=== PATIENT | female | born 1945 | race Caucasian/White ===

== ENCOUNTER 2023-04-11 18:16 | Inpatient (IN) | payer MEDICARE, MEDICAID ==
[2023-04-11] MEDS ORDERED: Dexamethasone 10 MG/ML VIAL ONE (18:28)
[2023-04-11] MEDS ORDERED: Furosemide 40 MG/4 ML VIAL ONE (18:28)
[2023-04-11] MEDS ORDERED: Ipratropium/Albuterol 3 ML NEB ONE (18:34)
[2023-04-11 18:45] LABS: #Monocytes 0.5 thou/uL (0.11-0.59); #Neutrophils 5.3 thou/uL (1.40-6.50); %Basophils 0.3 % (0.0-1.0); %Eosinophils 0.5 % (0.0-10.0); %Lymphocytes 8.3 % (21.0-51.0); %Monocytes 8.1 % (0.0-10.0); %Neutrophils 81.4 % (42.0-75.0); Hematocrit 35.5 % (36.0-47.0); Hemoglobin 9.4 g/dL (12.0-16.0); Mean Corpuscular HGB CONC 26.5 g/dL (32.0-36.0); Mean Corpuscular Hemoglobin 25.3 pg (27.0-31.0); Mean Corpuscular Volume 95.4 fl (78.0-98.0); Mean Platelet Volume 10.2 fL (7.4-10.4); Platelet Count 233 10x3/uL (130-400); RBC Distribution Width 16.5 % (11.5-14.5); Red Blood Cell (RBC) Count 3.72 mill/uL (4.20-5.40); White Blood Cell (WBC) Count 6.5 10x3/uL (4.8-10.8)
[2023-04-11 18:55] LABS: Actual Bicarbonate (HCO3a) 49.3 mEq/L (22-28); Analyzer IN Cardio ER; Base Excess (BEa) 17.1 mEq/L (-2.0 to +3.0); Calcium, Ionized (arterial) 1.23 mmol/L (1.12-1.30); Carboxyhemoglobin (COHb) 0.8 gm% (0.0-3.0); Hematocrit-ABG 28 % (36.0-47.0); Hemoglobin (Hb) 9.5 g/dL (12.0-16.0); Potassium - ABG Lab 4.54 mmol/L (3.70-5.30)
[2023-04-11 19:02] LABS: CO2 Tension 135.7 mmHg (35.0-45.0); Puncture Site RR; pH, Arterial 7.178 (7.35-7.45)
[2023-04-11 19:03] LABS: ALV-art Gradient 242.375 mmHg (0-20)
[2023-04-11 19:11] LABS: ALT (SGPT) Less than 7 U/L (8-55); AST (SGOT) 11 U/L (5-34); Albumin 3.8 g/dL (3.4-4.8); Alkaline Phosphatase 62 U/L (40-110); BUN (Urea Nitrogen) 18 mg/dL (9.8-20.1); Bilirubin, Total 0.4 mg/dL (0.2-1.2); Calc. Creatinine Clearance 0 mL/min (70-130); Calcium 9.1 mg/dL (7.8-10.44); Estimated GFR 66; Globulin 2.9 g/dL (2.4-3.5); Glucose 127 mg/dL (83-110); Protein, Total 6.7 g/dL (5.8-8.1)
[2023-04-11 19:15] LABS: Troponin I 0.012 ng/mL (< 0.028)
[2023-04-11 19:17] LABS: Anisocytosis SLIGHT = 6-15 cells HPF (0-5); CellaVision Operator ID LAB.KB; Hypochromia SLIGHT = 6-15 cells HPF (0-5); Platelet Adequacy Comment Platelets Normal; Polychromasia SLIGHT = 2-3 cells HPF (0-2); Stomatocytes SLIGHT = 2-5 cells HPF (0-1)
[2023-04-11 19:21] LABS: Anion Gap 17 mmol/L (10-20); Carbon Dioxide 38 mmol/L (23-31); Chloride 93 mmol/L (98-107); Potassium 4.7 mmol/L (3.5-5.1); Sodium 143 mmol/L (136-145)
[2023-04-11 20:01] LABS: Actual Bicarbonate (HCO3a) 49.5 mEq/L (22-28); Analyzer IN Cardio ER; Base Excess (BEa) 18.4 mEq/L (-2.0 to +3.0); Calcium, Ionized (arterial) 1.21 mmol/L (1.12-1.30); Carboxyhemoglobin (COHb) 0.8 gm% (0.0-3.0); Hematocrit-ABG 27 % (36.0-47.0); Hemoglobin (Hb) 9.2 g/dL (12.0-16.0); O2 Tension (PaO2), arterial 95.9 mmHg (> 70.0); Potassium - ABG Lab 4.41 mmol/L (3.70-5.30); pH, Arterial 7.232 (7.35-7.45)
[2023-04-11 20:07] LABS: Puncture Site RR
[2023-04-11] MEDS ORDERED: Lidocaine 1% PF 5 ML VIAL ONE (20:09)
[2023-04-11] MEDS ORDERED: Rocuronium Bromide 10 MG/ML (10ML VIAL) ONE (20:26)
[2023-04-11] MEDS ORDERED: Ketamine In 0.9 % NaCl 50 MG/5 ML SYRINGE ONE (20:26)
[2023-04-11] MEDS ORDERED: NOREPINEPHRINE 8 MG/250 ML-D5W 250 ML ONE (20:32)
[2023-04-11 21:09] LABS: Actual Bicarbonate (HCO3a) 42.4 mEq/L (22-28); Analyzer IN Cardio ER; Base Excess (BEa) 17.8 mEq/L (-2.0 to +3.0); CO2 Tension 51.6 mmHg (35.0-45.0); Calcium, Ionized (arterial) 1.13 mmol/L (1.12-1.30); Carboxyhemoglobin (COHb) 0.7 gm% (0.0-3.0); Hematocrit-ABG 27 % (36.0-47.0); Hemoglobin (Hb) 9.1 g/dL (12.0-16.0); O2 Tension (PaO2), arterial 318.2 mmHg (> 70.0); Potassium - ABG Lab 4.61 mmol/L (3.70-5.30); pH, Arterial 7.533 (7.35-7.45)
[2023-04-11 21:19] LABS: Bacteria/HPF 1+ HPF (None Seen); Bilirubin Negative (Negative); Blood, Urine Negative (Negative); CAUTI Indications for Culture Alt mental st,lethar; Clarity Clear (Clear); Glucose, Urine (Dipstick) Normal (Negative); Ketone, Urine Negative (Negative); Leukocyte Negative Leu/uL (Negative); Nitrite Negative (Negative); Protein, Urine (Dipstick) 30 mg/dL (Neg-Trace); RBC/HPF 0-3 HPF (0-3); Specific Gravity, Urine 1.009 (1.002-1.036); Squamous Epithelial 0-3 HPF (0-3); Urine Culture Reflex No No; Urobilinogen Normal mg/dL (Less than 2); WBC/HPF 0-3 HPF (0-3); pH, Urine 5.5 (5.0-9.0)
[2023-04-11 21:22] LABS: Puncture Site RR
[2023-04-11] MEDS ORDERED: Electrolyte Replacement Protocol 1 EACH IVPB SCH (21:45)
[2023-04-11] MEDS ORDERED: Acetaminophen 650 MG Suppository PR PRN (21:45)
[2023-04-11] MEDS ORDERED: Ventilator Sedation Protocol 1 EACH FS SCH (21:45)
[2023-04-11] MEDS ORDERED: Propofol BOLUS 1,000 MG/100 ML VIAL IV PRN (22:00)
[2023-04-11] MEDS ORDERED: DISCONTINUE PREVIOUS NARCOTIC PAIN MEDICATIONS AND BENZODIAZEPINES FS SCH (22:00)
[2023-04-11] MEDS ORDERED: Propofol 1,000 MG/100 ML VIAL IV PRN (22:00)
[2023-04-11] MEDS ORDERED: Morphine 2 MG/ML VIAL SLOW IVP PRN (22:00)
[2023-04-11] MEDS ORDERED: Fentanyl BOLUS 250 ML IVPB PRN (22:00)
[2023-04-11] MEDS ORDERED: Dextrose 5%-Lactated Ringers 1,000 ML IV SCH (22:30)
[2023-04-11] MEDS: Lorazepam 2 MG/ML VIAL SLOW IVP PRN (23:15)
[2023-04-11] MEDS: Ipratropium/Albuterol 3 ML NEB NEB SCH (23:48)
[2023-04-12] MEDS ORDERED: Albumin 25% 25 GM/100 ML BOT IVPB SCH ×2 (00:30→16:30)
[2023-04-12] MEDS: Lorazepam 2 MG/ML VIAL SLOW IVP PRN ×2 (02:40→04:40)
[2023-04-12 04:40] LABS: #Monocytes 0.1 thou/uL (0.11-0.59); #Neutrophils 3.8 thou/uL (1.40-6.50); %Basophils 0.2 % (0.0-1.0); %Lymphocytes 7.3 % (21.0-51.0); %Neutrophils 88.8 % (42.0-75.0); Hematocrit 26.6 % (36.0-47.0); Hemoglobin 7.3 g/dL (12.0-16.0); Mean Corpuscular HGB CONC 27.4 g/dL (32.0-36.0); Mean Corpuscular Hemoglobin 25.2 pg (27.0-31.0); Mean Platelet Volume 10.5 fL (7.4-10.4); Platelet Count 169 10x3/uL (130-400); RBC Distribution Width 15.9 % (11.5-14.5); White Blood Cell (WBC) Count 4.3 10x3/uL (4.8-10.8)
[2023-04-12 04:58] LABS: ALT (SGPT) Less than 7 U/L (8-55); AST (SGOT) 7 U/L (5-34); Albumin 3.2 g/dL (3.4-4.8); Alkaline Phosphatase 42 U/L (40-110); BUN (Urea Nitrogen) 21 mg/dL (9.8-20.1); Bilirubin, Total 0.5 mg/dL (0.2-1.2); Calc. Creatinine Clearance 65 mL/min (70-130); Calcium 8.9 mg/dL (7.8-10.44); Estimated GFR 64; Globulin 2.2 g/dL (2.4-3.5); Glucose 156 mg/dL (83-110); Protein, Total 5.4 g/dL (5.8-8.1)
[2023-04-12] MEDS: Furosemide 40 MG/4 ML VIAL SLOW IVP SCH ×2 (05:12→13:14)
[2023-04-12 05:16] LABS: Chloride 91 mmol/L (98-107); Potassium 4.2 mmol/L (3.5-5.1); Sodium 143 mmol/L (136-145)
[2023-04-12 05:19] LABS: Anion Gap 20 mmol/L (10-20); Carbon Dioxide 36 mmol/L (23-31)
[2023-04-12 05:21] LABS: Mean Corpuscular Volume 91.7 fl (78.0-98.0)
[2023-04-12] MEDS: ACETYLCYSTEINE INH SCH ×4 (06:00→23:15)
[2023-04-12] MEDS: Ipratropium/Albuterol 3 ML NEB NEB SCH ×4 (07:09→23:14)
[2023-04-12] MEDS ORDERED: Ipratropium/Albuterol 3 ML NEB NEB PRN (08:39)
[2023-04-12] MEDS ORDERED: [UNRECOGNIZED DRUG - REMARK] IVPB PRN (08:44)
[2023-04-12] MEDS ORDERED: Sodium Chloride 0.9% 1,000 ML IV SCH (08:45)
[2023-04-12 08:54] LABS: Actual Bicarbonate (HCO3a) 43.8 mEq/L (22-28); Base Excess (BEa) 20.7 mEq/L (-2.0 to +3.0); CO2 Tension 42.7 mmHg (35.0-45.0); Calcium, Ionized (arterial) 1.12 mmol/L (1.12-1.30); Hematocrit-ABG 25 % (36.0-47.0); Hemoglobin (Hb) 8.6 g/dL (12.0-16.0); Potassium - ABG Lab 4.08 mmol/L (3.70-5.30)
[2023-04-12 08:59] LABS: O2 Tension (PaO2), arterial 54.1 mmHg (> 70.0); Puncture Site LRA; pH, Arterial 7.629 (7.35-7.45)
[2023-04-12] MEDS ORDERED: FLU VACC QS2023(65UP)/MF59C/PF 60 MCG/0.5 ML SYRINGE IM ONE (09:00)
[2023-04-12] MEDS ORDERED: Vancomycin (BATCH) 1.5 GM in Premix 1 BAG IVPB SCH (09:00)
[2023-04-12] MEDS ORDERED: Midazolam In 0.9 % NaCl/PF 100 ML IVPB SCH (09:00)
[2023-04-12] MEDS: Famotidine/PF 20 mg/2ml Vial SLOW IVP SCH ×2 (09:12→20:33)
[2023-04-12] MEDS: methylPREDNISolone Sod Succ 40 MG VIAL IVP SCH ×2 (09:12→16:40)
[2023-04-12] MEDS: Cefepime 2 GM in Sodium Chloride 0.9% 100 ML IVPB SCH ×2 (09:58→16:39)
[2023-04-12] MEDS: Sodium Chloride 0.9% 1,000 ML IV SCH (10:00)
[2023-04-12] MEDS ORDERED: Ventilator Sedation Protocol 1 EACH FS ONE (13:40)
[2023-04-12] MEDS ORDERED: Propofol BOLUS 1,000 MG/100 ML VIAL IV PRN (13:45)
[2023-04-12] MEDS: Fentanyl CADD 100 ML IV SCH (14:08)
[2023-04-12 18:30] LABS: Hematocrit 23.1 % (36.0-47.0); Hemoglobin 6.8 g/dL (12.0-16.0); Platelet Count 184 10x3/uL (130-400)
[2023-04-12] MEDS: Sertraline 100 MG TAB PO SCH (20:33)
[2023-04-12] MEDS: Propofol 1,000 MG/100 ML VIAL IV PRN (23:31)
[2023-04-13] MEDS: Cefepime 2 GM in Sodium Chloride 0.9% 100 ML IVPB SCH ×3 (01:27→17:12)
[2023-04-13] MEDS: methylPREDNISolone Sod Succ 40 MG VIAL IVP SCH ×3 (01:27→17:13)
[2023-04-13 04:30] LABS: #Monocytes 0.3 thou/uL (0.11-0.59); #Neutrophils 3.5 thou/uL (1.40-6.50); %Lymphocytes 4.3 % (21.0-51.0); %Monocytes 6.6 % (0.0-10.0); %Neutrophils 88.3 % (42.0-75.0); Hematocrit 23.7 % (36.0-47.0); Hemoglobin 6.9 g/dL (12.0-16.0); Mean Corpuscular HGB CONC 29.1 g/dL (32.0-36.0); Mean Corpuscular Hemoglobin 25.1 pg (27.0-31.0); Mean Corpuscular Volume 86.2 fl (78.0-98.0); Mean Platelet Volume 10.6 fL (7.4-10.4); Platelet Count 202 10x3/uL (130-400); Red Blood Cell (RBC) Count 2.75 mill/uL (4.20-5.40)
[2023-04-13 05:05] LABS: Anion Gap 17 mmol/L (10-20); Carbon Dioxide 36 mmol/L (23-31); Chloride 94 mmol/L (98-107); Sodium 143 mmol/L (136-145)
[2023-04-13 05:09] LABS: ALT (SGPT) Less than 7 U/L (8-55); AST (SGOT) 10 U/L (5-34); Albumin 3.6 g/dL (3.4-4.8); Alkaline Phosphatase 38 U/L (40-110); BUN (Urea Nitrogen) 29 mg/dL (9.8-20.1); Bilirubin, Total 0.2 mg/dL (0.2-1.2); Calc. Creatinine Clearance 43 mL/min (70-130); Calcium 9.3 mg/dL (7.8-10.44); Estimated GFR 36; Globulin 2.1 g/dL (2.4-3.5); Glucose 126 mg/dL (83-110); Protein, Total 5.7 g/dL (5.8-8.1)
[2023-04-13] MEDS: Furosemide 40 MG/4 ML VIAL SLOW IVP SCH ×2 (05:44→13:28)
[2023-04-13] MEDS: Levothyroxine Sodium 50 MCG TAB PO SCH (05:44)
[2023-04-13] MEDS: Sodium Chloride 0.9% 1,000 ML IV SCH (05:44)
[2023-04-13 07:04] LABS: Calcium, Ionized (arterial) 1.12 mmol/L (1.12-1.30); Carboxyhemoglobin (COHb) 0.7 gm% (0.0-3.0); Hematocrit-ABG 23 % (36.0-47.0); Hemoglobin (Hb) 7.8 g/dL (12.0-16.0); Potassium - ABG Lab 3.86 mmol/L (3.70-5.30); pH, Arterial 7.548 (7.35-7.45)
[2023-04-13] MEDS: Ipratropium/Albuterol 3 ML NEB NEB SCH ×4 (07:12→23:33)
[2023-04-13] MEDS: ACETYLCYSTEINE INH SCH (07:13)
[2023-04-13 07:15] LABS: Puncture Site RRA
[2023-04-13] MEDS: Lorazepam 2 MG/ML VIAL SLOW IVP PRN (08:22)
[2023-04-13] MEDS: Famotidine/PF 20 mg/2ml Vial SLOW IVP SCH (08:36)
[2023-04-13] MEDS: Propofol 1,000 MG/100 ML VIAL IV PRN (13:10)
[2023-04-13] MEDS: Fentanyl CADD 100 ML IV SCH (13:25)
[2023-04-13] MEDS: hydrALAZINE 20 MG/ML VIAL SLOW IVP PRN (13:38)
[2023-04-13] MEDS: Sertraline 100 MG TAB PO SCH (21:18)
[2023-04-13] MEDS: Metoprolol Tartrate 25 MG TAB PO SCH (23:09)
[2023-04-13 23:29] LABS: Hematocrit 24.4 % (36.0-47.0); Hemoglobin 7.3 g/dL (12.0-16.0)
[2023-04-14] MEDS: methylPREDNISolone Sod Succ 40 MG VIAL IVP SCH ×3 (01:09→17:12)
[2023-04-14] MEDS: Cefepime 2 GM in Sodium Chloride 0.9% 100 ML IVPB SCH ×2 (01:10→10:11)
[2023-04-14] MEDS: Propofol 1,000 MG/100 ML VIAL IV PRN ×2 (02:36→17:19)
[2023-04-14] MEDS: Sodium Chloride 0.9% 1,000 ML IV SCH ×2 (04:10→10:07)
[2023-04-14 04:53] LABS: #Monocytes 0.4 thou/uL (0.11-0.59); #Neutrophils 5.4 thou/uL (1.40-6.50); %Lymphocytes 1.5 % (21.0-51.0); %Monocytes 6.2 % (0.0-10.0); %Neutrophils 91.6 % (42.0-75.0); Hematocrit 24.6 % (36.0-47.0); Hemoglobin 7.4 g/dL (12.0-16.0); Mean Corpuscular HGB CONC 30.1 g/dL (32.0-36.0); Mean Corpuscular Hemoglobin 25.4 pg (27.0-31.0); Mean Corpuscular Volume 84.5 fl (78.0-98.0); Mean Platelet Volume 10.9 fL (7.4-10.4); Platelet Count 212 10x3/uL (130-400); RBC Distribution Width 16.9 % (11.5-14.5); Red Blood Cell (RBC) Count 2.91 mill/uL (4.20-5.40); White Blood Cell (WBC) Count 5.9 10x3/uL (4.8-10.8)
[2023-04-14] MEDS: Furosemide 40 MG/4 ML VIAL SLOW IVP SCH (05:05)
[2023-04-14] MEDS: Levothyroxine Sodium 50 MCG TAB PO SCH (05:05)
[2023-04-14 05:16] LABS: ALT (SGPT) Less than 7 U/L (8-55); AST (SGOT) 24 U/L (5-34); Albumin 3.2 g/dL (3.4-4.8); Alkaline Phosphatase 34 U/L (40-110); BUN (Urea Nitrogen) 39 mg/dL (9.8-20.1); Bilirubin, Total 0.3 mg/dL (0.2-1.2); Calc. Creatinine Clearance 43 mL/min (70-130); Calcium 8.8 mg/dL (7.8-10.44); Estimated GFR 35; Globulin 2.1 g/dL (2.4-3.5); Glucose 160 mg/dL (83-110); Protein, Total 5.3 g/dL (5.8-8.1)
[2023-04-14 05:51] LABS: Anion Gap 17 mmol/L (10-20); Carbon Dioxide 35 mmol/L (23-31); Chloride 93 mmol/L (98-107); Potassium 3.6 mmol/L (3.5-5.1); Sodium 141 mmol/L (136-145)
[2023-04-14] MEDS: Ipratropium/Albuterol 3 ML NEB NEB SCH ×4 (07:04→23:44)
[2023-04-14] MEDS ORDERED: Sodium Chloride 0.9% 1,000 ML IV SCH (09:15)
[2023-04-14] MEDS ORDERED: Midazolam HCl 2 mg/2 ml Vial ONE (09:43)
[2023-04-14] MEDS ORDERED: Midazolam HCl 2 mg/2 ml Vial SLOW IVP SCH (10:00)
[2023-04-14] MEDS: Famotidine/PF 20 mg/2ml Vial SLOW IVP SCH (10:03)
[2023-04-14] MEDS: Metoprolol Tartrate 25 MG TAB PO SCH ×2 (10:03→21:53)
[2023-04-14] MEDS: hydrALAZINE 20 MG/ML VIAL SLOW IVP PRN (17:19)
[2023-04-14] MEDS ORDERED: Vancomycin (BATCH) 1.5 GM in Premix 1 BAG IVPB SCH (17:45)
[2023-04-14] MEDS ORDERED: Vancomycin Dose by Levels Sliding Scale (Wt 71-99) FS SCH (18:15)
[2023-04-14] MEDS: Fentanyl CADD 100 ML IV SCH (19:22)
[2023-04-14] MEDS ORDERED: Vancomycin 1 GM in Sodium Chloride 0.9% 250 ML 250 ML IVPB SCH (21:00)
[2023-04-14] MEDS: Cefepime 1 GM in Sodium Chloride 0.9% 100 ML IVPB SCH (21:53)
[2023-04-14] MEDS: Sertraline 100 MG TAB PO SCH (21:53)
[2023-04-15] MEDS: Propofol 1,000 MG/100 ML VIAL IV PRN ×2 (01:00→15:21)
[2023-04-15] MEDS: methylPREDNISolone Sod Succ 40 MG VIAL IVP SCH ×3 (02:30→17:03)
[2023-04-15] MEDS: Sodium Chloride 0.9% 1,000 ML IV SCH ×3 (05:43→15:00)
[2023-04-15] MEDS: Levothyroxine Sodium 50 MCG TAB PO SCH (05:44)
[2023-04-15 06:12] LABS: #Monocytes 0.4 thou/uL (0.11-0.59); #Neutrophils 6.5 thou/uL (1.40-6.50); %Lymphocytes 3.1 % (21.0-51.0); %Monocytes 5.4 % (0.0-10.0); %Neutrophils 90.2 % (42.0-75.0); Hematocrit 32.4 % (36.0-47.0); Hemoglobin 9.7 g/dL (12.0-16.0); Mean Corpuscular HGB CONC 29.9 g/dL (32.0-36.0); Mean Corpuscular Hemoglobin 25.5 pg (27.0-31.0); Mean Platelet Volume 11.1 fL (7.4-10.4); Platelet Count 208 10x3/uL (130-400); RBC Distribution Width 16.5 % (11.5-14.5); Red Blood Cell (RBC) Count 3.81 mill/uL (4.20-5.40); White Blood Cell (WBC) Count 7.2 10x3/uL (4.8-10.8)
[2023-04-15 06:33] LABS: ALT (SGPT) 7 U/L (8-55); AST (SGOT) 29 U/L (5-34); Albumin 3.2 g/dL (3.4-4.8); Alkaline Phosphatase 35 U/L (40-110); Anion Gap 16 mmol/L (10-20); BUN (Urea Nitrogen) 43 mg/dL (9.8-20.1); Bilirubin, Total 0.6 mg/dL (0.2-1.2); Calc. Creatinine Clearance 52 mL/min (70-130); Calcium 8.7 mg/dL (7.8-10.44); Carbon Dioxide 36 mmol/L (23-31); Chloride 93 mmol/L (98-107); Estimated GFR 48; Globulin 2.6 g/dL (2.4-3.5); Glucose 154 mg/dL (83-110); Potassium 3.3 mmol/L (3.5-5.1); Protein, Total 5.8 g/dL (5.8-8.1); Sodium 142 mmol/L (136-145)
[2023-04-15] MEDS: Ipratropium/Albuterol 3 ML NEB NEB SCH ×4 (07:06→23:56)
[2023-04-15] MEDS: Potassium Chloride 20 MEQ in Premix 1 BAG IVPB SCH ×2 (08:24→10:25)
[2023-04-15] MEDS: Cefepime 1 GM in Sodium Chloride 0.9% 100 ML IVPB SCH ×2 (08:57→20:45)
[2023-04-15] MEDS: Famotidine/PF 20 mg/2ml Vial SLOW IVP SCH (08:57)
[2023-04-15] MEDS: Metoprolol Tartrate 25 MG TAB PO SCH ×2 (08:57→20:45)
[2023-04-15] MEDS ORDERED: Bisacodyl 10 MG SUPP PR PRN (18:35)
[2023-04-15] MEDS ORDERED: Naloxegol 12.5 MG TAB PO SCH (18:45)
[2023-04-15] MEDS ORDERED: Polyethylene Glycol 3350 17 GM Packet PER TUBE SCH (18:45)
[2023-04-15 19:35] LABS: Potassium 3.8 mmol/L (3.5-5.1)
[2023-04-15] MEDS: Sertraline 100 MG TAB PO SCH (20:45)
[2023-04-15] MEDS ORDERED: Vancomycin HCl 500 MG in Sodium Chloride 0.9% 100 ML IV SCH (21:00)
[2023-04-16] MEDS: Acetaminophen 650 MG/20.3 ML UDCUP PO PRN (01:14)
[2023-04-16] MEDS: methylPREDNISolone Sod Succ 40 MG VIAL IVP SCH ×3 (01:15→19:42)
[2023-04-16] MEDS: Dexmedetomidine 400 MCG, Admixture Fee 1 EACH in Sodium Chloride 0.9% 96 ML IVPB SCH ×3 (03:17→19:45)
[2023-04-16] MEDS: Fentanyl CADD 100 ML IV SCH (03:33)
[2023-04-16 05:29] LABS: #Monocytes 0.5 thou/uL (0.11-0.59); #Neutrophils 6.9 thou/uL (1.40-6.50); %Lymphocytes 2.6 % (21.0-51.0); %Monocytes 5.9 % (0.0-10.0); %Neutrophils 90.6 % (42.0-75.0); Hematocrit 32.2 % (36.0-47.0); Hemoglobin 9.7 g/dL (12.0-16.0); Mean Corpuscular HGB CONC 30.1 g/dL (32.0-36.0); Mean Corpuscular Hemoglobin 25.9 pg (27.0-31.0); Mean Corpuscular Volume 85.9 fl (78.0-98.0); Mean Platelet Volume 10.2 fL (7.4-10.4); Platelet Count 200 10x3/uL (130-400); RBC Distribution Width 16.6 % (11.5-14.5); Red Blood Cell (RBC) Count 3.75 mill/uL (4.20-5.40); White Blood Cell (WBC) Count 7.7 10x3/uL (4.8-10.8)
[2023-04-16 06:22] LABS: ALT (SGPT) 7 U/L (8-55); AST (SGOT) 24 U/L (5-34); Albumin 3.1 g/dL (3.4-4.8); Alkaline Phosphatase 37 U/L (40-110); Anion Gap 14 mmol/L (10-20); BUN (Urea Nitrogen) 44 mg/dL (9.8-20.1); Bilirubin, Total 0.4 mg/dL (0.2-1.2); Calc. Creatinine Clearance 69 mL/min (70-130); Calcium 8.5 mg/dL (7.8-10.44); Carbon Dioxide 33 mmol/L (23-31); Chloride 96 mmol/L (98-107); Estimated GFR 66; Globulin 2.2 g/dL (2.4-3.5); Glucose 159 mg/dL (83-110); Magnesium 1.7 mg/dL (1.6-2.6); Potassium 3.8 mmol/L (3.5-5.1); Protein, Total 5.3 g/dL (5.8-8.1); Sodium 139 mmol/L (136-145)
[2023-04-16] MEDS: Ipratropium/Albuterol 3 ML NEB NEB SCH ×4 (06:59→22:41)
[2023-04-16] MEDS: Levothyroxine Sodium 50 MCG TAB PO SCH (07:20)
[2023-04-16] MEDS: Naloxegol 12.5 MG TAB PER TUBE SCH (07:20)
[2023-04-16] MEDS ORDERED: Magnesium 2 GM/50 ML(in water) 2 GM in Premix 1 BAG IVPB SCH (08:00)
[2023-04-16] MEDS: Polyethylene Glycol 3350 17 GM Packet PER TUBE SCH (08:10)
[2023-04-16] MEDS: Sodium Chloride 0.9% 1,000 ML IV SCH (08:10)
[2023-04-16] MEDS: Metoprolol Tartrate 25 MG TAB PO SCH ×2 (08:10→20:16)
[2023-04-16] MEDS: Famotidine/PF 20 mg/2ml Vial SLOW IVP SCH (08:10)
[2023-04-16] MEDS: Cefepime 1 GM in Sodium Chloride 0.9% 100 ML IVPB SCH (08:10)
[2023-04-16] MEDS: QUEtiapine 25 MG TAB PO SCH (08:45)
[2023-04-16] MEDS ORDERED: Vancomycin 1 GM in Premix 1 BAG IVPB SCH (09:00)
[2023-04-16] MEDS: Lorazepam 2 MG/ML VIAL SLOW IVP PRN ×2 (10:45→19:41)
[2023-04-16] MEDS: hydrALAZINE 20 MG/ML VIAL SLOW IVP PRN ×2 (10:45→17:30)
[2023-04-16] MEDS: Famotidine 20 MG TAB PER TUBE SCH (20:16)
[2023-04-16] MEDS: Sertraline 100 MG TAB PO SCH (20:16)
[2023-04-16] MEDS: Vancomycin (BATCH) 1.25 GM in Premix 1 BAG IVPB SCH (22:42)
[2023-04-17] MEDS: Dexmedetomidine 400 MCG, Admixture Fee 1 EACH in Sodium Chloride 0.9% 96 ML IVPB SCH ×4 (00:27→20:29)
[2023-04-17 04:35] LABS: #Monocytes 0.6 thou/uL (0.11-0.59); #Neutrophils 8.5 thou/uL (1.40-6.50); %Basophils 0.1 % (0.0-1.0); %Lymphocytes 4.1 % (21.0-51.0); %Monocytes 6.7 % (0.0-10.0); %Neutrophils 88.5 % (42.0-75.0); Hematocrit 30.1 % (36.0-47.0); Hemoglobin 9.4 g/dL (12.0-16.0); Mean Corpuscular HGB CONC 31.2 g/dL (32.0-36.0); Mean Corpuscular Hemoglobin 26.2 pg (27.0-31.0); Mean Corpuscular Volume 83.8 fl (78.0-98.0); Platelet Count 199 10x3/uL (130-400); RBC Distribution Width 16.9 % (11.5-14.5); Red Blood Cell (RBC) Count 3.59 mill/uL (4.20-5.40); White Blood Cell (WBC) Count 9.6 10x3/uL (4.8-10.8)
[2023-04-17] MEDS: Levothyroxine Sodium 50 MCG TAB PO SCH (05:51)
[2023-04-17] MEDS: Ondansetron PF 4 MG/2 ML Vial IVP PRN ×3 (06:18→18:25)
[2023-04-17] MEDS: Ipratropium/Albuterol 3 ML NEB NEB SCH ×4 (06:40→22:47)
[2023-04-17 06:54] LABS: ALT (SGPT) 8 U/L (8-55); AST (SGOT) 21 U/L (5-34); Alkaline Phosphatase 35 U/L (40-110); Anion Gap 11 mmol/L (10-20); BUN (Urea Nitrogen) 39 mg/dL (9.8-20.1); Bilirubin, Total 0.4 mg/dL (0.2-1.2); Calc. Creatinine Clearance 75 mL/min (70-130); Calcium 8.5 mg/dL (7.8-10.44); Carbon Dioxide 33 mmol/L (23-31); Chloride 98 mmol/L (98-107); Estimated GFR 70; Globulin 2.1 g/dL (2.4-3.5); Glucose 122 mg/dL (83-110); Protein, Total 5.1 g/dL (5.8-8.1); Sodium 139 mmol/L (136-145)
[2023-04-17] MEDS ORDERED: Electrolyte Replacement Protocol FS PRN (07:15)
[2023-04-17] MEDS ORDERED: Potassium Chloride 20 MEQ TAB PO SCH (07:15)
[2023-04-17] MEDS: Naloxegol 12.5 MG TAB PER TUBE SCH (07:30)
[2023-04-17] MEDS: Potassium Chloride 20 MEQ in Premix 1 BAG IVPB SCH ×2 (07:30→08:30)
[2023-04-17] MEDS: Polyethylene Glycol 3350 17 GM Packet PER TUBE SCH (07:45)
[2023-04-17] MEDS: methylPREDNISolone Sod Succ 40 MG VIAL IVP SCH ×2 (07:45→20:11)
[2023-04-17] MEDS ORDERED: Magnesium 2 GM/50 ML(in water) 2 GM in Premix 1 BAG IVPB SCH (08:00)
[2023-04-17] MEDS: QUEtiapine 25 MG TAB PO SCH (08:30)
[2023-04-17] MEDS: Famotidine 20 MG TAB PER TUBE SCH ×2 (08:30→20:10)
[2023-04-17] MEDS: Metoprolol Tartrate 25 MG TAB PO SCH ×3 (08:30→21:03)
[2023-04-17] MEDS ORDERED: Promethazine 25 MG TAB PER TUBE PRN (08:54)
[2023-04-17] MEDS ORDERED: Micafungin 100 MG in Sodium Chloride 0.9% 100 ML IVPB SCH (09:00)
[2023-04-17] MEDS ORDERED: fentaNYL 50 mcg/mL 1 mL Vial ONE ×2 (09:18→10:31)
[2023-04-17] MEDS ORDERED: fentaNYL 50 mcg/mL 1 mL Vial SLOW IVP SCH ×2 (10:15→11:15)
[2023-04-17] MEDS ORDERED: Fentanyl 100 MCG/2 ML VIAL SLOW IVP SCH (11:00)
[2023-04-17] MEDS: Lorazepam 2 MG/ML VIAL SLOW IVP PRN ×2 (13:00→17:20)
[2023-04-17 17:13] LABS: Potassium 3.4 mmol/L (3.5-5.1)
[2023-04-17] MEDS: Sertraline 100 MG TAB PO SCH ×2 (20:10→21:04)
[2023-04-17] MEDS: Vancomycin (BATCH) 1.25 GM in Premix 1 BAG IVPB SCH (20:29)
[2023-04-17] MEDS ORDERED: Pantoprazole 40 MG VIAL IVP SCH (20:45)
[2023-04-17 21:06] LABS: #Monocytes 0.7 thou/uL (0.11-0.59); #Neutrophils 9.1 thou/uL (1.40-6.50); %Basophils 0.1 % (0.0-1.0); %Eosinophils 0.1 % (0.0-10.0); %Lymphocytes 3.8 % (21.0-51.0); %Monocytes 6.5 % (0.0-10.0); %Neutrophils 89.2 % (42.0-75.0); Hemoglobin 9.1 g/dL (12.0-16.0); Mean Corpuscular HGB CONC 31.4 g/dL (32.0-36.0); Mean Corpuscular Hemoglobin 26.5 pg (27.0-31.0); Mean Corpuscular Volume 84.3 fl (78.0-98.0); Mean Platelet Volume 10.5 fL (7.4-10.4); Platelet Count 182 10x3/uL (130-400); RBC Distribution Width 17.1 % (11.5-14.5); Red Blood Cell (RBC) Count 3.44 mill/uL (4.20-5.40); White Blood Cell (WBC) Count 10.2 10x3/uL (4.8-10.8)
[2023-04-17 21:23] LABS: INR-International Normal Ratio 1.1; PTT 30.9 sec (22.9-36.1); Prothrombin Time 14.4 sec (12.0-14.7)
[2023-04-18] MEDS: Ondansetron PF 4 MG/2 ML Vial IVP PRN (02:22)
[2023-04-18 04:35] LABS: #Monocytes 0.4 thou/uL (0.11-0.59); #Neutrophils 9.3 thou/uL (1.40-6.50); %Lymphocytes 2.2 % (21.0-51.0); %Monocytes 4.1 % (0.0-10.0); %Neutrophils 93.4 % (42.0-75.0); Hematocrit 27.7 % (36.0-47.0); Hemoglobin 8.7 g/dL (12.0-16.0); Mean Corpuscular HGB CONC 31.4 g/dL (32.0-36.0); Mean Corpuscular Volume 82.9 fl (78.0-98.0); Mean Platelet Volume 11.2 fL (7.4-10.4); Platelet Count 198 10x3/uL (130-400); Red Blood Cell (RBC) Count 3.34 mill/uL (4.20-5.40)
[2023-04-18 04:49] LABS: ALT (SGPT) 8 U/L (8-55); AST (SGOT) 18 U/L (5-34); Albumin 2.9 g/dL (3.4-4.8); Alkaline Phosphatase 37 U/L (40-110); Anion Gap 13 mmol/L (10-20); BUN (Urea Nitrogen) 33 mg/dL (9.8-20.1); Bilirubin, Total 0.5 mg/dL (0.2-1.2); Calc. Creatinine Clearance 75 mL/min (70-130); Calcium 8.5 mg/dL (7.8-10.44); Carbon Dioxide 32 mmol/L (23-31); Chloride 99 mmol/L (98-107); Estimated GFR 70; Globulin 2.1 g/dL (2.4-3.5); Glucose 133 mg/dL (83-110); Magnesium 2.2 mg/dL (1.6-2.6); Potassium 3.1 mmol/L (3.5-5.1); Sodium 141 mmol/L (136-145)
[2023-04-18] MEDS: Levothyroxine Sodium 50 MCG TAB PO SCH (05:57)
[2023-04-18] MEDS: Dexmedetomidine 400 MCG, Admixture Fee 1 EACH in Sodium Chloride 0.9% 96 ML IVPB SCH (06:50)
[2023-04-18] MEDS: Ipratropium/Albuterol 3 ML NEB NEB SCH ×3 (07:13→19:12)
[2023-04-18] MEDS: Naloxegol 12.5 MG TAB PER TUBE SCH (07:30)
[2023-04-18] MEDS: Pantoprazole 40 MG VIAL IVP SCH (07:31)
[2023-04-18] MEDS: Metoprolol Tartrate 25 MG TAB PO SCH ×2 (07:31→21:26)
[2023-04-18] MEDS: methylPREDNISolone Sod Succ 40 MG VIAL IVP SCH (07:31)
[2023-04-18] MEDS: Polyethylene Glycol 3350 17 GM Packet PER TUBE SCH (07:32)
[2023-04-18] MEDS ORDERED: Potassium Chloride 20 MEQ TAB PER TUBE SCH (09:45)
[2023-04-18] MEDS: Potassium Chloride 20 MEQ in Premix 1 BAG IVPB SCH ×2 (10:04→12:21)
[2023-04-18] MEDS: hydrALAZINE 20 MG/ML VIAL SLOW IVP PRN ×2 (10:32→17:15)
[2023-04-18] MEDS: Acetaminophen 650 MG/20.3 ML UDCUP PO PRN (12:34)
[2023-04-18] MEDS: traMADol HCl 50 MG TAB PO PRN (15:44)
[2023-04-18 16:30] LABS: Potassium 3.6 mmol/L (3.5-5.1)
[2023-04-18 21:47] LABS: Vancomycin, Trough 23.1 ug/mL
[2023-04-18] MEDS: Sertraline 100 MG TAB PO SCH (22:00)
[2023-04-18] MEDS: Vancomycin HCl 750 MG in Sodium Chloride 0.9% 250 ML 250 ML IVPB SCH (22:52)
[2023-04-19] MEDS ORDERED: traZODone HCl 50 MG TAB PO SCH (00:30)
[2023-04-19] MEDS: Labetalol HCl 100 MG/20 ML VIAL SLOW IVP PRN ×2 (00:42→12:18)
[2023-04-19] MEDS ORDERED: Labetalol HCl 100 MG/20 ML VIAL SLOW IVP SCH (02:00)
[2023-04-19] MEDS: Ipratropium/Albuterol 3 ML NEB NEB SCH ×5 (02:25→23:33)
[2023-04-19 04:43] LABS: #Eosinphils 0.2 thou/uL (0.0-0.7); #Monocytes 0.9 thou/uL (0.11-0.59); #Neutrophils 10.3 thou/uL (1.40-6.50); %Basophils 0.1 % (0.0-1.0); %Eosinophils 1.3 % (0.0-10.0); %Lymphocytes 3.9 % (21.0-51.0); %Monocytes 7.7 % (0.0-10.0); %Neutrophils 86.3 % (42.0-75.0); Hematocrit 29.5 % (36.0-47.0); Hemoglobin 8.7 g/dL (12.0-16.0); Mean Corpuscular HGB CONC 29.5 g/dL (32.0-36.0); Mean Corpuscular Hemoglobin 25.6 pg (27.0-31.0); Mean Corpuscular Volume 86.8 fl (78.0-98.0); Mean Platelet Volume 9.9 fL (7.4-10.4); Platelet Count 174 10x3/uL (130-400); RBC Distribution Width 17.4 % (11.5-14.5); White Blood Cell (WBC) Count 11.9 10x3/uL (4.8-10.8)
[2023-04-19 05:08] LABS: Anion Gap 12 mmol/L (10-20); BUN (Urea Nitrogen) 23 mg/dL (9.8-20.1); Calc. Creatinine Clearance 77 mL/min (70-130); Carbon Dioxide 33 mmol/L (23-31); Chloride 101 mmol/L (98-107); Potassium 3.2 mmol/L (3.5-5.1); Sodium 143 mmol/L (136-145)
[2023-04-19 05:09] LABS: ALT (SGPT) 11 U/L (8-55); AST (SGOT) 26 U/L (5-34); Albumin 3.2 g/dL (3.4-4.8); Alkaline Phosphatase 40 U/L (40-110); Bilirubin, Total 0.4 mg/dL (0.2-1.2); Calcium 8.7 mg/dL (7.8-10.44); Estimated GFR 72; Globulin 2.2 g/dL (2.4-3.5); Glucose 83 mg/dL (83-110); Magnesium 2.2 mg/dL (1.6-2.6); Protein, Total 5.4 g/dL (5.8-8.1)
[2023-04-19] MEDS: Levothyroxine Sodium 50 MCG TAB PO SCH (06:40)
[2023-04-19] MEDS: Vancomycin (BATCH) 1.25 GM in Premix 1 BAG IVPB SCH (06:40)
[2023-04-19 08:04] VITALS: BMI 33.0
[2023-04-19] MEDS: Losartan 25 MG TAB PO SCH (08:42)
[2023-04-19] MEDS: Furosemide 20 MG TAB PO SCH (08:42)
[2023-04-19] MEDS: Metoprolol Tartrate 25 MG TAB PO SCH ×2 (08:42→22:22)
[2023-04-19] MEDS: Potassium Chloride 20 MEQ in Premix 1 BAG IVPB SCH ×2 (08:42→12:09)
[2023-04-19] MEDS: Naloxegol 12.5 MG TAB PER TUBE SCH (08:42)
[2023-04-19] MEDS: methylPREDNISolone Sod Succ 40 MG VIAL IVP SCH (08:43)
[2023-04-19] MEDS: Polyethylene Glycol 3350 17 GM Packet PER TUBE SCH (08:43)
[2023-04-19] MEDS: Pantoprazole 40 MG VIAL IVP SCH (08:43)
[2023-04-19 13:28] LABS: CO2 Tension 120.3 mmHg (35.0-45.0)
[2023-04-19] MEDS: hydrALAZINE 20 MG/ML VIAL SLOW IVP PRN (17:59)
[2023-04-19] MEDS: traMADol HCl 50 MG TAB PO PRN (18:28)
[2023-04-19] MEDS: Sertraline 100 MG TAB PO SCH (22:22)
[2023-04-19] MEDS: Vancomycin HCl 750 MG in Sodium Chloride 0.9% 250 ML 250 ML IVPB SCH (22:30)
[2023-04-20] MEDS: Levothyroxine Sodium 50 MCG TAB PO SCH (06:20)
[2023-04-20 06:46] LABS: #Eosinphils 0.2 thou/uL (0.0-0.7); #Monocytes 0.9 thou/uL (0.11-0.59); #Neutrophils 6.2 thou/uL (1.40-6.50); %Eosinophils 2.9 % (0.0-10.0); %Lymphocytes 7.3 % (21.0-51.0); %Monocytes 10.8 % (0.0-10.0); %Neutrophils 78.2 % (42.0-75.0); Hematocrit 29.8 % (36.0-47.0); Hemoglobin 8.7 g/dL (12.0-16.0); Mean Corpuscular HGB CONC 29.2 g/dL (32.0-36.0); Mean Corpuscular Hemoglobin 26.2 pg (27.0-31.0); Mean Corpuscular Volume 89.8 fl (78.0-98.0); Mean Platelet Volume 10.8 fL (7.4-10.4); Platelet Count 192 10x3/uL (130-400); RBC Distribution Width 17.2 % (11.5-14.5); Red Blood Cell (RBC) Count 3.32 mill/uL (4.20-5.40)
[2023-04-20 07:16] LABS: ALT (SGPT) 9 U/L (8-55); AST (SGOT) 19 U/L (5-34); Albumin 3.3 g/dL (3.4-4.8); Alkaline Phosphatase 42 U/L (40-110); Anion Gap 10 mmol/L (10-20); BUN (Urea Nitrogen) 18 mg/dL (9.8-20.1); Bilirubin, Total 0.4 mg/dL (0.2-1.2); Calc. Creatinine Clearance 81 mL/min (70-130); Calcium 8.9 mg/dL (7.8-10.44); Carbon Dioxide 35 mmol/L (23-31); Chloride 100 mmol/L (98-107); Estimated GFR 76; Globulin 2.2 g/dL (2.4-3.5); Glucose 106 mg/dL (83-110); Magnesium 1.9 mg/dL (1.6-2.6); Potassium 3.4 mmol/L (3.5-5.1); Protein, Total 5.5 g/dL (5.8-8.1); Sodium 142 mmol/L (136-145)
[2023-04-20] MEDS: Ipratropium/Albuterol 3 ML NEB NEB SCH ×4 (07:26→23:42)
[2023-04-20] MEDS ORDERED: Magnesium 2 GM/50 ML(in water) 2 GM in Premix 1 BAG IVPB SCH (08:00)
[2023-04-20] MEDS: Polyethylene Glycol 3350 17 GM Packet PER TUBE SCH (08:26)
[2023-04-20] MEDS: Metoprolol Tartrate 25 MG TAB PO SCH ×2 (08:28→22:04)
[2023-04-20] MEDS: Losartan 25 MG TAB PO SCH (08:28)
[2023-04-20] MEDS: Potassium Chloride 8 MEQ TAB PO SCH (08:28)
[2023-04-20] MEDS: methylPREDNISolone Sod Succ 40 MG VIAL IVP SCH (08:29)
[2023-04-20] MEDS: Naloxegol 12.5 MG TAB PER TUBE SCH (08:29)
[2023-04-20] MEDS: Furosemide 20 MG TAB PO SCH (08:29)
[2023-04-20] MEDS: Pantoprazole 40 MG VIAL IVP SCH (08:29)
[2023-04-20] MEDS ORDERED: Potassium Chloride 20 MEQ TAB PO SCH (10:00)
[2023-04-20] MEDS: hydrALAZINE 20 MG/ML VIAL SLOW IVP PRN (14:13)
[2023-04-20] MEDS: Sertraline 100 MG TAB PO SCH (22:05)
[2023-04-20] MEDS: QUEtiapine 25 MG TAB PO PRN (22:09)
[2023-04-20 22:26] LABS: Vancomycin, Trough 18.5 ug/mL
[2023-04-21] MEDS: Vancomycin HCl 750 MG in Sodium Chloride 0.9% 250 ML 250 ML IVPB SCH ×2 (00:31→22:58)
[2023-04-21] MEDS: Levothyroxine Sodium 50 MCG TAB PO SCH (06:17)
[2023-04-21 06:50] LABS: #Eosinphils 0.2 thou/uL (0.0-0.7); #Monocytes 0.7 thou/uL (0.11-0.59); #Neutrophils 4.2 thou/uL (1.40-6.50); %Basophils 0.2 % (0.0-1.0); %Eosinophils 3.3 % (0.0-10.0); %Lymphocytes 15.2 % (21.0-51.0); Hematocrit 30.7 % (36.0-47.0); Hemoglobin 8.7 g/dL (12.0-16.0); Mean Corpuscular HGB CONC 28.3 g/dL (32.0-36.0); Mean Corpuscular Hemoglobin 25.4 pg (27.0-31.0); Mean Corpuscular Volume 89.5 fl (78.0-98.0); Mean Platelet Volume 10.6 fL (7.4-10.4); Platelet Count 224 10x3/uL (130-400); RBC Distribution Width 17.2 % (11.5-14.5); Red Blood Cell (RBC) Count 3.43 mill/uL (4.20-5.40); White Blood Cell (WBC) Count 6.1 10x3/uL (4.8-10.8)
[2023-04-21] MEDS: Ipratropium/Albuterol 3 ML NEB NEB SCH ×4 (07:28→23:40)
[2023-04-21 07:41] LABS: ALT (SGPT) 10 U/L (8-55); AST (SGOT) 15 U/L (5-34); Albumin 3.6 g/dL (3.4-4.8); Alkaline Phosphatase 44 U/L (40-110); Anion Gap 10 mmol/L (10-20); BUN (Urea Nitrogen) 15 mg/dL (9.8-20.1); Bilirubin, Total 0.4 mg/dL (0.2-1.2); Calc. Creatinine Clearance 79 mL/min (70-130); Calcium 9.3 mg/dL (7.8-10.44); Carbon Dioxide 37 mmol/L (23-31); Chloride 98 mmol/L (98-107); Estimated GFR 74; Globulin 2.2 g/dL (2.4-3.5); Glucose 100 mg/dL (83-110); Potassium 3.4 mmol/L (3.5-5.1); Protein, Total 5.8 g/dL (5.8-8.1); Sodium 142 mmol/L (136-145)
[2023-04-21] MEDS ORDERED: Magnesium 2 GM/50 ML(in water) 2 GM in Premix 1 BAG IVPB SCH (08:30)
[2023-04-21] MEDS ORDERED: Potassium Chloride 20 MEQ TAB PO SCH (08:45)
[2023-04-21] MEDS: Losartan 25 MG TAB PO SCH (08:49)
[2023-04-21] MEDS: Metoprolol Tartrate 25 MG TAB PO SCH ×2 (08:49→20:11)
[2023-04-21] MEDS: Furosemide 20 MG TAB PO SCH (08:49)
[2023-04-21] MEDS: methylPREDNISolone Sod Succ 40 MG VIAL IVP SCH (08:49)
[2023-04-21] MEDS: Potassium Chloride 8 MEQ TAB PO SCH (08:49)
[2023-04-21] MEDS: Pantoprazole 40 MG VIAL IVP SCH (08:50)
[2023-04-21] MEDS: Naloxegol 12.5 MG TAB PER TUBE SCH (08:50)
[2023-04-21] MEDS: Polyethylene Glycol 3350 17 GM Packet PER TUBE SCH (08:51)
[2023-04-21] MEDS: Sertraline 100 MG TAB PO SCH (20:11)
[2023-04-21] MEDS: QUEtiapine 25 MG TAB PO PRN (21:40)
[2023-04-22] MEDS: Levothyroxine Sodium 50 MCG TAB PO SCH (05:27)
[2023-04-22] MEDS: Ipratropium/Albuterol 3 ML NEB NEB SCH ×3 (07:09→18:48)
[2023-04-22 07:56] VITALS: TEMP 97.9
[2023-04-22] MEDS: Polyethylene Glycol 3350 17 GM Packet PER TUBE SCH (08:47)
[2023-04-22] MEDS: Naloxegol 12.5 MG TAB PER TUBE SCH (08:47)
[2023-04-22] MEDS: methylPREDNISolone Sod Succ 40 MG VIAL IVP SCH (08:49)
[2023-04-22] MEDS: Pantoprazole 40 MG VIAL IVP SCH (08:49)
[2023-04-22] MEDS: Losartan 25 MG TAB PO SCH (08:49)
[2023-04-22] MEDS: Potassium Chloride 8 MEQ TAB PO SCH (08:49)
[2023-04-22] MEDS: Furosemide 20 MG TAB PO SCH (08:49)
[2023-04-22] MEDS: Metoprolol Tartrate 25 MG TAB PO SCH ×2 (08:49→19:57)
[2023-04-22 09:09] LABS: #Eosinphils 0.3 thou/uL (0.0-0.7); #Monocytes 0.8 thou/uL (0.11-0.59); #Neutrophils 5.8 thou/uL (1.40-6.50); %Basophils 0.1 % (0.0-1.0); %Eosinophils 3.4 % (0.0-10.0); %Lymphocytes 12.6 % (21.0-51.0); %Monocytes 10.2 % (0.0-10.0); %Neutrophils 73.2 % (42.0-75.0); Hematocrit 31.8 % (36.0-47.0); Hemoglobin 9.1 g/dL (12.0-16.0); Mean Corpuscular HGB CONC 28.6 g/dL (32.0-36.0); Mean Corpuscular Hemoglobin 25.8 pg (27.0-31.0); Mean Corpuscular Volume 90.1 fl (78.0-98.0); Mean Platelet Volume 10.5 fL (7.4-10.4); Platelet Count 224 10x3/uL (130-400); RBC Distribution Width 17.2 % (11.5-14.5); Red Blood Cell (RBC) Count 3.53 mill/uL (4.20-5.40); White Blood Cell (WBC) Count 7.9 10x3/uL (4.8-10.8)
[2023-04-22 10:01] LABS: ALT (SGPT) 10 U/L (8-55); AST (SGOT) 14 U/L (5-34); Albumin 3.6 g/dL (3.4-4.8); Alkaline Phosphatase 44 U/L (40-110); Anion Gap 11 mmol/L (10-20); BUN (Urea Nitrogen) 12 mg/dL (9.8-20.1); Bilirubin, Total 0.3 mg/dL (0.2-1.2); Calc. Creatinine Clearance 79 mL/min (70-130); Calcium 9.2 mg/dL (7.8-10.44); Carbon Dioxide 36 mmol/L (23-31); Chloride 98 mmol/L (98-107); Estimated GFR 78; Globulin 2.3 g/dL (2.4-3.5); Glucose 111 mg/dL (83-110); Magnesium 1.9 mg/dL (1.6-2.6); Potassium 3.3 mmol/L (3.5-5.1); Protein, Total 5.9 g/dL (5.8-8.1); Sodium 142 mmol/L (136-145)
[2023-04-22 10:02] LABS: CellaVision Operator ID LAB.GE; Hypochromia SLIGHT = 6-15 cells HPF (0-5); Platelet Adequacy Comment Platelets Normal; Polychromasia SLIGHT = 2-3 cells HPF (0-2)
[2023-04-22] MEDS ORDERED: Magnesium 2 GM/50 ML(in water) 2 GM in Premix 1 BAG IVPB SCH (11:00)
[2023-04-22] MEDS ORDERED: Potassium Chloride 20 MEQ TAB PO SCH (11:00)
[2023-04-22] MEDS ORDERED: hydrALAZINE 25 MG TAB PO SCH (15:30)
[2023-04-22] MEDS ORDERED: Amlodipine 5 MG TAB PO SCH (15:30)
[2023-04-22 18:44] VITALS: BP 182/90
[2023-04-22] MEDS: Sertraline 100 MG TAB PO SCH (19:56)
[2023-04-23] MEDS ORDERED: Amlodipine 5 MG TAB PO SCH (09:00)
== END 2023-04-22 20:10 | DRG 207 ==
LOC: ERS 18:16 → CCU 21:46 → T4-A 04-19 10:10
PROVIDERS: ADMIT Student in an Organized Health Care Education/Training Program; ATTEND Internal Medicine
PROC: 5A1955Z Respiratory Ventilation, Greater than 96 Consecutive Hours (ICD-10-PCS; 2023-04-11)
PROC: 4A133R1 Monitoring of Arterial Saturation, Peripheral, Percutaneous Approach (ICD-10-PCS; 2023-04-11)
PROC: 3E033XZ Introduction of Vasopressor into Peripheral Vein, Percutaneous Approach (ICD-10-PCS; 2023-04-11)
PROC: 0BH17EZ Insertion of Endotracheal Airway into Trachea, Via Natural or Artificial Opening (ICD-10-PCS; 2023-04-11)
PROC: 30233J1 Transfusion of Nonautologous Serum Albumin into Peripheral Vein, Percutaneous Approach (ICD-10-PCS; 2023-04-12)
PROC: 3E1F88Z Irrigation of Respiratory Tract using Irrigating Substance, Via Natural or Artificial Opening Endoscopic (ICD-10-PCS; 2023-04-14)
PROC: 30233N1 Transfusion of Nonautologous Red Blood Cells into Peripheral Vein, Percutaneous Approach (ICD-10-PCS; 2023-04-14)
PROC: 0BJ08ZZ Inspection of Tracheobronchial Tree, Via Natural or Artificial Opening Endoscopic (ICD-10-PCS; principal; 2023-04-17)
DX: J18.9 Pneumonia, unspecified organism (principal); I50.43 Acute on chronic combined systolic (congestive) and diastolic (congestive) heart failure; G93.41 Metabolic encephalopathy; J96.20 Acute and chronic respiratory failure, unspecified whether with hypoxia or hypercapnia; J96.21 Acute and chronic respiratory failure with hypoxia; J44.1 Chronic obstructive pulmonary disease with (acute) exacerbation; I31.39 Other pericardial effusion (noninflammatory); F03.90 Unspecified dementia, unspecified severity, without behavioral disturbance, psychotic disturbance, mood disturbance, and anxiety; J44.9 Chronic obstructive pulmonary disease, unspecified; E66.01 Morbid (severe) obesity due to excess calories; E03.9 Hypothyroidism, unspecified; F32.A Depression, unspecified; K21.9 Gastro-esophageal reflux disease without esophagitis; E87.6 Hypokalemia; I35.0 Nonrheumatic aortic (valve) stenosis; E88.09 Other disorders of plasma-protein metabolism, not elsewhere classified; N18.9 Chronic kidney disease, unspecified; T17.990A Other foreign object in respiratory tract, part unspecified in causing asphyxiation, initial encounter; R53.1 Weakness; Z90.710 Acquired absence of both cervix and uterus; Z98.890 Other specified postprocedural states; Z82.49 Family history of ischemic heart disease and other diseases of the circulatory system; Z79.899 Other long term (current) drug therapy; Z79.82 Long term (current) use of aspirin; Z79.890 Hormone replacement therapy; Z51.5 Encounter for palliative care; Z78.1 Physical restraint status; Z68.31 Body mass index [BMI] 31.0-31.9, adult
CPT/HCPCS: 31500; 36415; 36416; 36430; 36600; 51702; 71045; 71250; 74018; 80053; 80202; 81001; 82805; 83735; 83880; 84145; 84443; 84484; 85025; 85610; 85730; 86850; 86870; 86880; 86900; 86901; 86904; 86905; 86922; 87040; 87070; 87077; 87081; 87186; 87205; 93005; 93306; 94002; 94003; 94640; 94660; 94760; 96365; 96375; C9113; J0360; J0692; J1100; J1650; J1940; J2060; J2248; J2250; J2405; J2704; J2920; J3010; J3370; J3475; J3480; J3490; J7050; J7608; J7620; P9016; P9047; S0028